=== PATIENT | male | born 1980 | race Asian ===

== ENCOUNTER 2021-06-17 06:18 | Emergency (ER) | payer OTHER ==
[~2021-06-17] VITALS: Ht 167.6 cm; Wt 77.0 kg
[2021-06-17] MEDS ORDERED: TRAM300T24 PO (06:23)
[2021-06-17] MEDS ORDERED: KETOROLAC TROMETHAMINE 30 MG/ML VIAL IM ONE (08:45)
[2021-06-17] MEDS ORDERED: LIDOCAINE 5% TRANSDERMAL PATCH TD ONE (08:45)
[2021-06-17] MEDS ORDERED: CYCLOBENZAPRINE HCL 10 MG TABLET PO ONE (08:45)
[2021-06-17 10:00] VITALS: BP 123/69
== END 2021-06-17 10:30 | disposition home or self-care (01) ==
LOC: EMS 06:18
DX: M54.50 Low back pain, unspecified (principal); Z79.899 Other long term (current) drug therapy
CPT/HCPCS: 96372; 99283; J1885